=== PATIENT | female | born 1995 | race Hispanic/Latino ===

== ENCOUNTER 2024-09-09 23:17 | Emergency (ER) | payer SELFPAY ==
[~2024-09-09] VITALS: Ht 154.9 cm; Wt 83.5 kg
[~2024-09-09 23:17] MED LIST: BACTRIM DS TAB1 EACH PO; CEFDINIR300 MG PO; CORTISPORIN-TC10 M1 LEFT EAR; NAPROSYN500 MG PO; PENICILLIN V P500 MG PO
[2024-09-09 23:22] VITALS: PULSE 77; RESP 16; TEMP 98.5; O2SAT 100
[2024-09-09] MEDS ORDERED: KETOROLAC TROME10 MG PO (23:37)
== END 2024-09-09 23:48 | disposition home or self-care (01) ==
LOC: MERGE 23:20 → ER 23:20
DX: R10.2 Pelvic and perineal pain (principal)
CPT/HCPCS: 99282